=== PATIENT | female | born 1985 | race Caucasian/White ===

== ENCOUNTER 2017-03-20 08:04 | Inpatient (IN) | payer BC ==
[2017-03-20] MEDS ORDERED: Oxytocin in LR* 20 UNITS/1,000 ML BAG IVPB SCH (09:00)
[2017-03-20] MEDS ORDERED: Oxytocin in LR* 20 UNITS/1,000 ML BAG IVPB ONE (09:11)
[2017-03-20 09:22] LABS: Hematocrit 41 % (35-47); Hemoglobin 13.7 g/dl (12.0-16.0); Mean Corpuscular HGB Conc 34 g/dl (31-36); Mean Corpuscular Hemoglobin 34 pg (27-31); Mean Corpuscular Volume 101 fL (80-97); Mean Platelet Volume 11 um3 (7.4-10.4); Platelet Count 175 10^3/ul (150-450); Red Blood Count 4.01 10^6/ul (4.0-5.4); Red Cell Distribution Width 14 % (10.5-15); White Blood Count 9.9 10^3/ul (3.5-10.8)
[2017-03-20 09:56] LABS: ABS Basophils 0.1 10^3/ul (0-0.2); ABS Eosinophils 0.1 10^3/ul (0-0.6); ABS Lymphocytes 2.2 10^3/ul (1.0-4.8); ABS Monocytes 0.8 10^3/ul (0-0.8); ABS Neutrophils 6.7 10^3/ul (1.5-7.7); ABS Nucleated RBC 0 10^3/ul; Eosinophil % 1.4 % (0-6); Lymphocyte % 22.6 % (25-47); Nucleated Red Blood Cells % 0.1
[2017-03-20] MEDS ORDERED: OBEPIDURAL* 250 ML EPIDURAL ONE (23:42)
[2017-03-20] MEDS ORDERED: fentaNYL* 50 MCG/ML 5 ML VIAL (250 MCG VIAL) ONE (23:43)
[2017-03-21] MEDS ORDERED: Sodium Citrate/Citric Acid* 15 ML UDC PO PRN (00:42)
[2017-03-21] MEDS ORDERED: Famotidine TAB* 20 MG PO PRN (00:42)
[2017-03-21] MEDS ORDERED: Phenylephrine IV* 40 MCG/ML 10 ML SYRINGE IV PUSH PRN ×2 (00:42)
[2017-03-21] MEDS ORDERED: fentaNYL* 50 MCG/ML 2 ML VIAL (100 MCG VIAL) IV ONE (00:44)
[2017-03-21] MEDS ORDERED: OBEPIDURAL* 250 ML EPIDURAL SCH (01:00)
[2017-03-21] MEDS ORDERED: ceFOXitin 2 GM IVPREMIX* 2 GM/50 ML BAG ONE (11:40)
[2017-03-21] MEDS ORDERED: Sodium Citrate/Citric Acid* 15 ML UDC ONE (11:40)
[2017-03-21] MEDS ORDERED: ceFOXitin 2 GM IVPREMIX* 2 GM/50 ML BAG IVPB ONE (11:46)
[2017-03-21] MEDS ORDERED: oxyCODONE/Acetamin 5/325 MG* TAB PO PRN ×2 (11:47)
[2017-03-21] MEDS ORDERED: Witch Hazel PAD* JAR TOPICAL PRN (11:47)
[2017-03-21] MEDS ORDERED: Dibucaine 1% 28.35 GM TUBE PR PRN (11:47)
[2017-03-21] MEDS ORDERED: Morphine PF AMP (0.5MG/ML)* 5 MG/10 ML AMP ONE (11:52)
[2017-03-21] MEDS ORDERED: fentaNYL* 50 MCG/ML 2 ML VIAL (100 MCG VIAL) ONE (12:56)
[2017-03-21] MEDS ORDERED: Propofol* 10 MG/ML 20 ML BTL IV PUSH ONE (12:59)
[2017-03-21] MEDS ORDERED: OXYTOCIN* 10 UNITS/ML 1 ML VIAL ONE (13:06)
[2017-03-21] MEDS ORDERED: Phenylephrine IV* 40 MCG/ML 10 ML SYRINGE ONE (13:27)
[2017-03-21] MEDS ORDERED: fentaNYL* 50 MCG/ML 2 ML VIAL (100 MCG VIAL) IV PRN (13:49)
[2017-03-21] MEDS ORDERED: Naloxone* 0.4 MG/ML 1 ML VIAL IV PRN ×2 (13:49→13:50)
[2017-03-21] MEDS ORDERED: Naloxone* 2 MG in NS 0.9% 250 ML* 250 ML IV PRN (13:50)
[2017-03-21] MEDS ORDERED: Ketorolac INJ* 30 MG/ML 1 ML VIAL IV PRN (13:50)
[2017-03-21] MEDS ORDERED: Nalbuphine* 20 MG/ML 1 ML VIAL IV PRN (13:50)
[2017-03-21] MEDS ORDERED: Ondansetron INJ* 2 MG/ML VIAL IV PRN (13:50)
[2017-03-21] MEDS: Docusate CAP* 100 MG PO SCH ×2 (15:23→20:24)
[2017-03-21] MEDS: Ibuprofen TAB* 600 MG PO SCH ×2 (18:00→20:27)
[2017-03-21] MEDS: Simethicone TAB* 80 MG TAB.CHEW PO SCH ×3 (18:41→20:24)
[2017-03-21] MEDS ORDERED: CEFOXITIN IVPB ONE (23:00)
[2017-03-21] MEDS ORDERED: D5W IVPB ONE (23:00)
[2017-03-22] MEDS: Ibuprofen TAB* 600 MG PO SCH ×4 (02:31→20:31)
[2017-03-22 06:54] LABS: ABS Basophils 0 10^3/ul (0-0.2); ABS Eosinophils 0.1 10^3/ul (0-0.6); ABS Lymphocytes 1.4 10^3/ul (1.0-4.8); ABS Monocytes 0.7 10^3/ul (0-0.8); ABS Neutrophils 11.9 10^3/ul (1.5-7.7); ABS Nucleated RBC 0 10^3/ul; Eosinophil % 0.4 % (0-6); Hematocrit 32 % (35-47); Hemoglobin 10.8 g/dl (12.0-16.0); Lymphocyte % 10.2 % (25-47); Mean Corpuscular HGB Conc 34 g/dl (31-36); Mean Corpuscular Hemoglobin 34 pg (27-31); Mean Corpuscular Volume 101 fL (80-97); Mean Platelet Volume 11 um3 (7.4-10.4); Nucleated Red Blood Cells % 0; Platelet Count 112 10^3/ul (150-450); Red Blood Count 3.18 10^6/ul (4.0-5.4); Red Cell Distribution Width 13 % (10.5-15); White Blood Count 14.1 10^3/ul (3.5-10.8)
[2017-03-22] MEDS: Simethicone TAB* 80 MG TAB.CHEW PO SCH ×5 (08:37→20:31)
[2017-03-22] MEDS: Docusate CAP* 100 MG PO SCH ×3 (08:37→20:31)
[2017-03-22] MEDS ORDERED: Ferrous Gluconate TAB* 324 MG TAB PO SCH (09:00)
--- NOTE | 2017-03-22 13:40 | OP ---
OPERATIVE REPORT: DATE OF OPERATION: 03/21/17 DATE OF : 87 SURGEON: Rigoberto France MD APRON MAN: Jessica Gomez CNM. ANESTHESIA: Epidural. ANESTHESIOLOGIST: Dr. Lazo. PRE-OP DIAGNOSIS: Arrest of descent. POST-OP DIAGNOSIS: Arrest of descent. OPERATIVE PROCEDURE: Primary low transverse section. ESTIMATED BLOOD LOSS: 1000 mL. URINE OUTPUT: 400 cc. IV FLUIDS: 2300 cc lactated Ringer's. INDICATIONS: This patient was a 31-year-old 1, para 0, who was admitted yesterday at 40 plus 3 weeks' gestation for induction of labor. The patient had good progress in labor and received an epidural. This morning she reached complete dilation and began pushing. Over nearly 3 hours of pushing, the head only reached about +1 station and there was no further descent from there. Considering this, the patient was extensively counseled and consent was signed for a primary section for arrest of descent. FINDINGS: Normal appearing uterus, fallopian tubes and ovaries. Delivery was productive of a female infant weighing 7 pounds 3 ounces with Apgars of 9 and 9. Of note, the head was firmly engaged in the lower pelvis and lifting the head was quite difficult. In addition, there was significant trauma to the bladder during the delivery as evidenced by very bloody urine. The bladder was backfilled with sterile water during the procedure to ensure that the bladder was intact, and there was no leakage. MATERIALS TO LAB: Cord blood. COMPLICATIONS: Blunt bladder trauma. DESCRIPTION OF PROCEDURE: The risks, benefits, and alternatives were described to the patient and informed consent was obtained. The patient was taken to the operating room with IV running where epidural anesthesia was induced and found to be adequate. The patient was prepped and draped in the normal sterile fashion in the dorsal supine position with leftward tilt. A Pfannenstiel skin incision was made with a scalpel and this was carried down to the underlying fascia sharply. The fascia was then scored in the midline with the scalpel. The incision was extended using Navas scissors. The rectus muscles were dissected off the rectus fascia using blunt and sharp dissection. The rectus muscles were in the midline bluntly. The peritoneum was also entered bluntly. A bladder blade was placed. A bladder flap was created sharply using Metzenbaum scissors. A low transverse uterine incision was made with the scalpel. This was carried down to the amniotic cavity which was productive of clear fluid. The incision was extended with blunt traction. The head was found to be very low in the pelvis. A few attempts were needed to elevate the head to the level of the incision. At that time the head delivered through the incision without difficulty. With fundal pressure, the shoulders and body delivered as well. The infant had good tone and cried immediately after delivery. The cord was doubly clamped and cut. The was then handed to the awaiting tax services intern. Cord blood was collected. The placenta then delivered with manual extraction. The uterus was then exteriorized and cleared of all clots and debris. The uterine incision was reapproximated using 0 Polysorb in a running-locked fashion. A second layer of imbricating sutures of 0 Polysorb was also placed. A few additional stitches of 0 and 3-0 Vicryl were placed for hemostasis. There was no significant extension of the uterine incision. The posterior cul- de-sac was irrigated with saline. On inspection of the urine in the Hamm catheter, there was a significant amount of blood. To be cautious, the bladder was backfilled with sterile water to ensure it was intact. The bladder filled appropriately, and the uterine stitches appeared to be well away from the dome of the bladder. The Hamm catheter was reconnected. The uterus was then returned to the abdomen, and the incision was reinspected and still noted to be hemostatic. The peritoneum was closed with 3-0 Polysorb in a running fashion. The fascia was closed with 0 Polysorb in a running fashion. The subcutaneous tissues were irrigated and made hemostatic with the Bovie. The skin was then closed with 4-0 Monocryl in a subcuticular stitch. Mastisol and Steri-Strips were placed over the incision which was then covered with a sterile bandage. The patient tolerated the procedure well. Sponge, lap, and needle counts were correct x2. [id number]/[facility] #: [id number] [facility]
[2017-03-23] MEDS: Ibuprofen TAB* 600 MG PO SCH ×4 (04:12→22:26)
[2017-03-23] MEDS: Simethicone TAB* 80 MG TAB.CHEW PO SCH ×4 (08:35→20:03)
[2017-03-23] MEDS: Docusate CAP* 100 MG PO SCH ×3 (08:35→20:03)
[2017-03-24] MEDS: Ibuprofen TAB* 600 MG PO SCH (04:20)
[2017-03-24 07:52] VITALS: BP 119/76
[2017-03-24] MEDS: Docusate CAP* 100 MG PO SCH (09:11)
[2017-03-24] MEDS: Simethicone TAB* 80 MG TAB.CHEW PO SCH (09:11)
== END 2017-03-24 13:15 | disposition home or self-care (01) | DRG 540 ==
LOC: MCHOBOUT 08:04 → MCHOB 08:51
PROVIDERS: ADMIT Midwife; ATTEND Obstetrics & Gynecology
PROC: 10907ZC Drainage of Amniotic Fluid, Therapeutic from Products of Conception, Via Natural or Artificial Opening (ICD-10-PCS; 2017-03-21)
PROC: 3E033VJ Introduction of Other Hormone into Peripheral Vein, Percutaneous Approach (ICD-10-PCS; 2017-03-21)
PROC: 10D00Z1 Extraction of Products of Conception, Low, Open Approach (ICD-10-PCS; principal; 2017-03-21 12:00)
DX: O48.0 Post-term pregnancy (principal); F41.8 Other specified anxiety disorders; O32.4XX0 Maternal care for high head at term, not applicable or unspecified; O99.344 Other mental disorders complicating childbirth; Z3A.40 40 weeks gestation of pregnancy; Z37.0 Single live birth
CPT/HCPCS: 36415; 85025; 86850; 86900; 86901; A9270-GY; J0694; J2590; J2704; J3010